=== PATIENT | male | born 1935 | race Caucasian/White ===

== ENCOUNTER → 2018-07-17 | Outpatient (CLI) | payer MEDICARE, BC | END | disposition home or self-care (01) | LOC: PCVCCLINIC 13:53 | PROVIDERS: ATTEND Internal Medicine Cardiovascular Disease | DX: I25.10 Atherosclerotic heart disease of native coronary artery without angina pectoris (principal); I71.4 Abdominal aortic aneurysm, without rupture; I48.91 Unspecified atrial fibrillation; I10 Essential (primary) hypertension; I25.5 Ischemic cardiomyopathy; C61 Malignant neoplasm of prostate; I65.29 Occlusion and stenosis of unspecified carotid artery; I67.89 Other cerebrovascular disease; I48.0 Paroxysmal atrial fibrillation; Z79.82 Long term (current) use of aspirin; Z79.899 Other long term (current) drug therapy | CPT/HCPCS: 93005; G0463 ==

== ENCOUNTER → 2018-07-24 | Outpatient (CLI) | payer MEDICARE, BC ==
[~2018-07-24] MED LIST: REGADENOSON 0.4 MG/5 ML DISP.SYRIN. IV ONE
--- NOTE | 2018-07-24 11:19 | PCVCIMAG ---
EXAM: BILATERAL CAROTID DUPLEX INDICATION: Carotid Occlusive Disease. FINDINGS: Doppler Measurements (centimeters per second): RIGHT: Peak CCA-65, Peak ECA-93, Diastolic ICA-18, Peak ICA-77, ICA/CCA Ratio-1.2. LEFT: Peak CCA-70, Peak ECA-72, Diastolic ICA-18, Peak ICA-70, ICA/CCA Ratio-1.0. RIGHT CAROTID: The carotid bulb has moderate plaque. The proximal internal carotid artery shows <40% stenosis. The common carotid artery shows no significant stenosis. The external carotid artery shows no significant stenosis. LEFT CAROTID: The carotid bulb has mild plaque. The proximal internal carotid artery shows <40% stenosis. The common carotid artery shows no significant stenosis. The external carotid artery shows no significant stenosis. Antegrade flow in both vertebral arteries. IMPRESSION: <40% stenosis of the right internal carotid artery with moderate plaque. <40% stenosis of the left internal carotid artery with mild plaque. LOC:[id number]
--- NOTE | 2018-07-24 11:21 | PCVCIMAG ---
EXAM: BILATERAL RENAL ULTRASOUND AND BILATERAL RENAL DUPLEX INDICATION: Hypertension FINDINGS: Right kidney: Length measures 11.2 cm. No hydronephrosis. Prsu-sz-vluhfaul cortical thinning. Right renal duplex: Adequate technical quality. No sonographic evidence of renal artery stenosis. The aortic to renal artery ratio is 1.6. The renal vein is patent. Left kidney: Length measures 11.4 cm. No hydronephrosis. Hull-kj-mhknmign cortical thinning. 3.0 x 3.5 cm benign cyst midpole. 2.3 x 2.97 cm benign cyst midpole laterally. Left renal duplex: Adequate technical quality. No sonographic evidence of renal artery stenosis. The aortic to renal artery ratio is 1.9. The renal vein is patent. Bladder: No obvious abnormalities. IMPRESSION: No significant renal artery stenosis. No hydronephrosis bilaterally. Mild/moderate cortical thinning most consistent with chronic medical renal disease. LOC:[id number]
--- NOTE | 2018-07-24 11:25 | PCVCIMAG ---
EXAM: AORTOILIAC DUPLEX INDICATION: Abdominal aortic aneurysm with previous stent graft repair. FINDINGS: AORTA: Suprarenal aorta measures maximum diameter of 3.0 cm. Prior stent graft repair of abdominal aortic aneurysm appears intact without obvious endoleak. Residual aneurysm sac measures maximum diameter of 5.0 x 5.5 cm. No aortic stenosis. RIGHT COMMON ILIAC ARTERY: Maximum diameter is 1.6 cm. No significant stenosis. RIGHT EXTERNAL ILIAC ARTERY: No significant stenosis. LEFT COMMON ILIAC ARTERY: Maximum diameter is 1.7 cm. No significant stenosis. LEFT EXTERNAL ILIAC ARTERY: No significant stenosis. IMPRESSION: Intact stent graft repair of abdominal aortic aneurysm by ultrasound criteria. Residual aneurysm sac measures 5.0 x 5.5 cm. If not recently done follow-up CTA of the abdomen and pelvis for further follow-up of the aortic stent graft would be helpful. Incidental note is made of a 6.2 x 7.2 x 8.2 cm benign cyst in the central liver. LOC:[id number]
--- NOTE | 2018-07-24 15:05 | PCVCIMAG ---
APPROVED REPORT Study performed: 07/24/2018 10:51:11 EXAM: Comprehensive 2D, Doppler, and color-flow Echocardiogram Patient Location: Echo lab Room #: 2Status: routine BSA: 2.24 HR: 62 bpmBP: 149/70 mmHg Rhythm: NSR Other Information Study Quality: Adequate Risk Factors: Cardiac Risk Factors: HTN Indications Pacemaker CAD Cardiomyopathy Hypertension/HDD Old [place], ICD/pacemaker 2D Dimensions IVSd: 9.47 (7-11mm)LVOT Diam: 22.37 (18-24mm) LVDd: 61.68 mm PWd: 10.02 (7-11mm)Ascending Ao: 35.55 (22-36mm) LVDs: 55.05 (25-40mm) Left Atrium: 49.92 (27-40mm) Aortic Root: 30.40 mm LV Single Plane 4CH: 46.46 % LV Single Plane 2CH: 32.92 % Biplane EF: 38.0 % Volumes Left Atrial Volume (Systole) Single Plane 4CH: 108.17 mLSingle Plane 2CH: 66.83 mL Biplane LA Volume: 86.00 mLLA ESV Index: 39.00 mL/m2 Aortic Valve AoV Peak Jonathan.: 1.58 m/s AO Peak Gr.: 9.92 mmHgLVOT Max P.79 mmHg LVOT Max V: 0.97 m/s KENDALL Vmax: 2.43 cm2 Mitral Valve E/A Ratio: 0.4 MV Decel. Time: 143.60 ms MV E Max Jonathan.: 0.33 m/s MV A Jonathan.: 0.90 m/s IVRT: 176.47 ms TDI E/Lateral E': 4.13E/Medial E': 5.50 Medial E' Jonathan.: 0.06 m/s Lateral E' Jonathan.: 0.08 m/s Pulmonary Valve PV Peak Jonathan.: 0.93 m/sPV Peak Gr.: 3.44 mmHg Pulmonary Vein P Vein S: 0.42 m/sP Vein A: 0.29 m/s P Vein D: 0.24 m/sP Vein A Dur.: 83.0 msec P Vein S/D Ratio: 1.75 Tricuspid Valve TR Peak Jonathan.: 3.02 m/s TR Peak Gr.: 36.55 mmHg TV Vmax: 0.64 m/sPA Pressure: 44.00 mmHg Left Ventricle Left ventricle is moderately dilated. Large area of apical dilitation and scarring consistent with an old [place] Distalnseptum,apical anterior and apex akinesis; dilated and scarred . There is normal left ventricular wall thickness. Left ventricular systolic function is moderately decreased. LVEF is 35-40%. Grade I - abnormal relaxation pattern. Right Ventricle The right ventricle is normal size. The right ventricular systolic function is normal. Atria Left atrium is mildly dilated. Right atrium is not well visualized. Aortic Valve Aortic valve is trileaflet. The Aortic valve is minimally sclerotic. No aortic regurgitation is present. There is no aortic valvular stenosis. Mitral Valve The mitral valve is normal in structure. Trace mitral regurgitation. No evidence of mitral valve stenosis. Tricuspid Valve The tricuspid valve is normal in structure. Mild to moderate tricuspid regurgitation with a PA pressure of 44 mmHg. Pulmonic Valve The pulmonary valve is normal in structure. There is no pulmonic valvular regurgitation. Great Vessels The aortic root is normal in size. Aortic arch is normal in caliber. The ascending aorta is normal in size. IVC is normal in size and collapses with >50% inspiration Pericardium There is no pericardial effusion. There is no pleural effusion. <Conclusion> Left ventricle is moderately dilated. Large area of apical dilitation and scarring consistent with an old [place] Left ventricular systolic function is moderately decreased. LVEF is 35-40%. Grade I - abnormal relaxation pattern. The right ventricle is normal size. Left atrium is mildly dilated. Right atrium is not well visualized. Aortic valve is trileaflet. The Aortic valve is minimally sclerotic. Mild to moderate tricuspid regurgitation with a PA pressure of 44 mmHg. The aortic root is normal in size. There is no pericardial effusion.
--- NOTE | 2018-07-24 16:00 | PCVCIMAG ---
APPROVED REPORT Imaging Protocol: Rest Tc-99m/Stress Tc-99m 1 day Study performed: 07/24/2018 08:53:58 Indication: Atrial Fibrillation, Cardiomyopathy Patient Location: Out-Patient Stress Nurse: Sylvia Salmon RN HI Tech:Janet Horan [facility] Ht: 6 ft 2 in Wt: 218 lbs BSA: 2.25 m2 HR: 62 bpm BP: 149/70 mmHg BMI: 27.9 Rhythm: SR Medical History Medical History: Hyperlipidemia, Atrial Fibrillation, CAD, COPD, CVD, PVD, ICD, Age Medications: Amiodarone, aspirin, atorvastatin, coreg (held 24h), lasix, KCl, prilosec Allergies: CLARISSA's, Doxycycline, Lisinopril, PCN Pretest Chest Pain Characteristics: No chest pain Physical Disabilities: Legs/uses cane Resting Data Rest SPECT myocardial perfusion imaging was performed in supine position 45 minutes following the intravenous injection of 10.8 mCi of Tc-99m Sestamibi. Time of rest injection: 0800 Date: 07/24/2018 Administration Route: IV Administration Site: Left AC Pharmacologic Stress Pharmacologic stress test was performed by injecting Regadenoson 0.4 mg IV push over 10-15 seconds immediately followed by the intravenous injection of 32.2 mCi of Tc-99m Sestamibi. Time of stress injection: 929 Date: 07/24/2018 Administration Route: IV Administration Site: Left AC Gated Stress SPECT was performed 45 minutes after stress injection. The images were gated to evaluate regional wall motion and calculate left ventricular ejection fraction. Stress Test Details Stress Test: Pharmacologic stress testing performed using 0.4 mg of regadenoson per 5 mL given IV over 10 seconds. Reason for pharmacologic stress test: physical limitation/legs and uses cane. HRMax Heart Rate (APMHR): 137 bpm Resting HR: 62 bpmTarget HR (85% APMHR): 116 bpm Max HR Achieved: 81 bpm % of APMHR: 59 Recovery HR: 81 bpm BP Resting BP: 149/70 mmHg Recovery BP: 104/59 mmHg ECG Resting ECG: Sinus Rhythm Stress ECG: Sinus Rhythm Recovery ECG: Sinus Rhythm Clinical Reason for Termination: Completed protocol Stress Symptoms: Lightheaded Exercise duration: 0 min 55 sec Symptoms resolved with caffeine. Stress ECG Conclusion ECG: Non-ischemic Study Quality Study: Good Study Data Post stress, the left ventricular ejection was 34%.. SSS: 22 SRS: 21 SDS: 2 TID = 0.95. 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 No evidence of stress induced ischemia. Wall Motion Global hypokinesis with chamber dilatation. 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 No evidence of stress induced ischemia. Post stress, the left ventricular ejection was 34%. No prior study available for comparison. Interpreted by: Hank Modi MD Electronically Approved: 07/24/2018 15:55:45 <Conclusion> ECG: Non-ischemic
== END | disposition home or self-care (01) ==
LOC: PCVCIMAG 10:24
PROVIDERS: ATTEND Internal Medicine Cardiovascular Disease
DX: I65.23 Occlusion and stenosis of bilateral carotid arteries (principal); I12.9 Hypertensive chronic kidney disease with stage 1 through stage 4 chronic kidney disease, or unspecified chronic kidney disease; N18.9 Chronic kidney disease, unspecified; I71.4 Abdominal aortic aneurysm, without rupture; I25.10 Atherosclerotic heart disease of native coronary artery without angina pectoris; I07.1 Rheumatic tricuspid insufficiency; I48.91 Unspecified atrial fibrillation; I21.9 Acute myocardial infarction, unspecified; J44.9 Chronic obstructive pulmonary disease, unspecified
CPT/HCPCS: 76770; 78452; 93017; 93306; 93880; 93975; 93978; A9500; J2785

== ENCOUNTER → 2018-10-27 | Outpatient (CLI) | payer MEDICARE, BC | END | disposition home or self-care (01) | LOC: PCVCCLINIC 15:41 | PROVIDERS: ATTEND Internal Medicine Cardiovascular Disease | DX: I71.4 Abdominal aortic aneurysm, without rupture (principal); I25.10 Atherosclerotic heart disease of native coronary artery without angina pectoris; I25.5 Ischemic cardiomyopathy; C61 Malignant neoplasm of prostate; I48.0 Paroxysmal atrial fibrillation; I12.9 Hypertensive chronic kidney disease with stage 1 through stage 4 chronic kidney disease, or unspecified chronic kidney disease; N18.3 Chronic kidney disease, stage 3 (moderate); Z95.818 Presence of other cardiac implants and grafts; Z95.810 Presence of automatic (implantable) cardiac defibrillator; Z79.82 Long term (current) use of aspirin | CPT/HCPCS: 80061; 93005; G0463 ==